=== PATIENT | female | born 1955 | race Caucasian/White ===

== ENCOUNTER → 2016-11-24 | Outpatient (CLI) | payer OTHER ==
--- NOTE | 2016-11-24 10:45 | DX ---
Left Elbow, 3 views HISTORY: Pain, fall on ice yesterday, M25.522 Comparison: None FINDINGS: There is a vertical intra-articular fracture of the radial head associated with slight wide jacey of the lateral aspect of the radial capitellar joint. There is an elbow joint effusion. IMPRESSION: Intra-articular radial head fracture.
== END ==
LOC: BMCIMAGING 10:24
PROVIDERS: ATTEND Family Medicine
DX: S52.122A Displaced fracture of head of left radius, initial encounter for closed fracture (principal)

== ENCOUNTER → 2016-12-09 | Outpatient (CLI) | payer OTHER ==
--- NOTE | 2016-12-09 09:24 | DX ---
Left elbow series 3 views 0 833 hours. History: Follow-up radial head fracture. Findings: Comparison to November 24, 2016. There is stable appearance of the radial head fracture without displacement. There is no evidence of bridging as of yet across the fracture line. No additional fractures are appreciated. Elbow joint eff usion is once again noted. Impression: Stable left radial head fracture without evidence of healing as of yet with persistent ef fusion also noted.
== END ==
LOC: BMCIMAGING 08:30
PROVIDERS: ATTEND Physician Assistant
DX: S52.125D Nondisplaced fracture of head of left radius, subsequent encounter for closed fracture with routine healing (principal)

== ENCOUNTER → 2017-01-06 | Outpatient (CLI) | payer OTHER | LOC: BMCIMAGING 08:26 | PROVIDERS: ATTEND Physician Assistant | DX: S52.125D Nondisplaced fracture of head of left radius, subsequent encounter for closed fracture with routine healing (principal) ==

== ENCOUNTER → 2017-02-10 | Outpatient (CLI) | payer OTHER | LOC: BMCIMAGING 08:55 | PROVIDERS: ATTEND Physician Assistant | DX: S52.125D Nondisplaced fracture of head of left radius, subsequent encounter for closed fracture with routine healing (principal) ==

== ENCOUNTER → 2017-06-01 | Outpatient (CLI) | payer OTHER | LOC: BMCIMAGING 12:41 | PROVIDERS: ATTEND Internal Medicine | DX: Z12.31 Encounter for screening mammogram for malignant neoplasm of breast (principal) | CPT/HCPCS: G0202 ==

== ENCOUNTER → 2018-07-25 | Outpatient (CLI) | payer OTHER | LOC: BMCIMAGING 11:48 | PROVIDERS: ATTEND Internal Medicine | DX: Z12.31 Encounter for screening mammogram for malignant neoplasm of breast (principal) ==

== ENCOUNTER → 2019-05-01 | Outpatient (CLI) | payer OTHER | LOC: BMCIMAGING 13:26 ==